=== PATIENT | female | born 1990 | race Caucasian/White ===

== ENCOUNTER 2018-12-08 07:36 | Day surgery (SDC) | payer BC ==
[2018-12-08] MEDS: ACETAMINOPHEN 500 MG TAB PO (09:02)
[2018-12-08] MEDS ORDERED: FENTAnyl 50 MCG/ML VIAL IV ×2 (10:00)
[2018-12-08] MEDS ORDERED: ONDANSETRON 4 MG INJ IV (10:00)
[2018-12-08] MEDS ORDERED: EPHEDrine 25 MG/5 ML SYG IV (10:00)
[2018-12-08] MEDS ORDERED: OXYCODONE/ACETAMINOPHEN (5/325) TAB PO ×2 (10:00)
[2018-12-08] MEDS ORDERED: ALBUTEROL 0.083% (NEB) 2.5 MG/3 ML AMP HHN (10:00)
[2018-12-08] MEDS ORDERED: LABETALOL HCL 20MG INJ IV (10:00)
[2018-12-08] MEDS ORDERED: ATROPINE 1 MG/10 ML SYRINGE IV (10:00)
[2018-12-08] MEDS ORDERED: KETOROLAC 15 MG INJ IV (10:00)
[2018-12-08] MEDS ORDERED: hydrALAzine 20 MG INJ IV (10:00)
[2018-12-08] MEDS ORDERED: HYDROmorphONE 1 MG/5 ML IV SYRINGE IV ×3 (10:00)
[2018-12-08] MEDS ORDERED: morphine 2 MG INJ IV ×2 (10:00)
[2018-12-08] MEDS ORDERED: DIPHENHYDRAMINE 50 MG INJ IV (10:00)
[2018-12-08] MEDS ORDERED: LEVALBUTEROL (NEB) 0.63 MG/3 ML AMP HHN (10:00)
[2018-12-08] MEDS ORDERED: FENTAnyl 50 MCG/ML VIAL (10:27)
[2018-12-08] MEDS ORDERED: MIDAZOLAM 1 MG/ML 2 ML INJ (10:27)
[2018-12-08] MEDS ORDERED: ONDANSETRON 4 MG INJ (10:27)
[2018-12-08] MEDS ORDERED: FAMOTIDINE 20 MG INJ (10:27)
[2018-12-08] MEDS ORDERED: LIDOCAINE 2% (SDV) 5 ML INJ (10:27)
[2018-12-08] MEDS ORDERED: DEXAMETHASONE 4 MG/ML 5 ML INJ (10:27)
[2018-12-08] MEDS ORDERED: PROPOFOL 40 ML (10:27)
[2018-12-08] MEDS ORDERED: CEFAZOLIN 1 GM INJ (10:27)
[2018-12-08] MEDS ORDERED: KETOROLAC 30 MG INJ (10:43)
== END 2018-12-08 12:20 | disposition home or self-care (01) ==
LOC: SDS 07:36
DX: N84.0 Polyp of corpus uteri (principal)
CPT/HCPCS: 58558; 84703; 88305